=== PATIENT | female | born 1995 | race Caucasian/White ===

== ENCOUNTER 2021-08-16 23:29 | Emergency (ER) | payer BC ==
--- NOTE | 2021-08-17 01:58 | EDM.PDOC ---
ED HPI GENERAL MEDICAL PROBLEM - General Chief Complaint: Chest Pain Stated Complaint: CHEST PAIN Time Seen by Provider: 08/17/21 01:40 Source of Information: Reports: Patient, Old Records, RN History Limitations: Reports: No Limitations - History of Present Illness INITIAL COMMENTS - FREE TEXT/NARRATIVE: 25 yo female presents with at least 24 hrs of mild chest tightness. She thought initially that it was from her milk coming in and the tight sports bra she was wearing. Had recently in [place]. Lives here in [place]. No fever or calf pain. Does have a bit of a cough. No vaccinations for Covid to date. Is worried tonight about her sx's. Has not discussed with her provider. Onset: Gradual Onset Date: 08/15/21 Duration: Day(s): (1), Constant Location: Reports: Chest Quality: Reports: Dull, Pressure Severity: Mild Improves with: Reports: None Worsens with: Reports: Other (deep breathing) Context: Reports: Other (See HPI) Associated Symptoms: Reports: Cough (mild). 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) (none) Chest Pain Score (Numeric/FACES): 6 - Related Data Allergies Allergy/AdvReac Type Severity Reaction Status Date / Time No Known Allergies Allergy Verified 08/17/21 01:14 Home Meds: Home Meds Acetaminophen/HYDROcodone [HYDROcodone-Acetaminophen 5-325 MG *] 1 tab PO ASDIRECTED 08/17/21 [History] Docusate Sodium [Colace] 100 mg PO DAILY 08/17/21 [History] Pantoprazole Sodium [Protonix] 40 mg PO DAILY 08/17/21 [History] Sennosides/Docusate Sodium [Senna-S 8.6-50 mg Tablet] 1 tab PO DAILY 08/17/21 [H istory] nitrofurantoin macrocrystaL [Nitrofurantoin] 100 mg PO BID 08/17/21 [History] Past Medical History - Past Health History Medical/Surgical History: Denies Medical/Surgical History [employer] History: Reports: - Past Surgical History Female Surgical History: Reports: Section Social & Family History - Tobacco Use Tobacco Use Status *Q: Never Tobacco User - Caffeine Use Caffeine Use: Reports: Coffee - Recreational Drug Use Recreational Drug Use: No ED ROS GENERAL - Review of Systems Review Of Systems: See Below Constitutional: Reports: No Symptoms HEENT: Reports: No Symptoms Respiratory: Reports: Cough Cardiovascular: Reports: Chest Pain (mild tightness, worse with deep breathing), Edema (both legs, not new) GI/Abdominal: Reports: No Symptoms : Reports: No Symptoms Musculoskeletal: Reports: No Symptoms Skin: Reports: No Symptoms Neurological: Reports: No Symptoms Psychiatric: Reports: No Symptoms ED EXAM, GENERAL - Physical Exam Exam: See Below Exam Limited By: No Limitations General Appearance: Alert, WD/WN, No Apparent Distress Eye Exam: Bilateral Eye: Normal Inspection Ears: Normal External Exam, Normal Canal, Hearing Grossly Normal Ear Exam: Bilateral Ear: Auricle Normal, Canal Normal Nose: Normal Inspection, No Blood Throat/Mouth: Normal Inspection, Normal Lips, Normal Oropharynx, Normal Voice, No Airway Compromise Head: Atraumatic, Normocephalic Neck: Normal Inspection Respiratory/Chest: No Respiratory Distress, No Accessory Muscle Use, Crackles (R base). No: Rhonchi Cardiovascular: Regular Rate, Rhythm, No Edema GI/Abdominal: Soft, Non-Tender Back Exam: Normal Inspection Extremities: Normal Inspection, Normal Range of Motion, Non-Tender, Pedal Edema (1+ pitting edema bilat. ) Neurological: Alert, Oriented, CN II-XII Intact, Normal Cognition, No Motor/Sensory Deficits Psychiatric: Normal Affect, Normal Mood Skin Exam: Warm, Dry, Intact, Normal Color, No Rash Course - Vital Signs Last Recorded V/S: Last Vital Signs Temp 36.3 C 08/17/21 01:10 Pulse 50 L 08/17/21 01:10 Resp 18 08/17/21 01:10 BP 126/76 08/17/21 01:10 Pulse Ox 98 08/17/21 01:10 - Orders/Labs/Meds Orders: Active Orders 24 hr Category Date Time Status CREATININE W/GFR [CHEM] Stat Lab 08/17/21 01:48 Received Isolation [COMM] Stat Oth 08/17/21 01:53 Ordered Labs: Laboratory Tests 08/17/21 08/17/21 Range/Units 01:45 02:14 D-Dimer, Quantitative 7007.38 H (0.0-500.0) ng/mL Influenza Type A RNA Negative (NEGATIVE) RSV RNA (INAAT) Negative (NEGATIVE) Influenza Type B RNA Negative (NEGATIVE) SARS-CoV-2 RNA (CHRISTOPHER) Negative (NEGATIVE) - Re-Assessments/Exams Free Text/Narrative Re-Assessment/Exam: 08/17/21 03:27 discussed the elevated d-dimer and that it is most likely from her recent surgery. Lives [place] [address] from here and will return if worse. Departure - Departure Time of Disposition: 03:35 Disposition: Home, Self-Care 01 Condition: Good Clinical Impression: Nonspecific chest pain - Discharge Information *PRESCRIPTION DRUG MONITORING PROGRAM REVIEWED*: Not Applicable *COPY OF PRESCRIPTION DRUG MONITORING REPORT IN PATIENT THEE: Not Applicable Instructions: Nonspecific Chest Pain, Adult, [id number] Referrals: PCP,None [Primary Care Provider] - Forms: ED Department Discharge Additional Instructions: Acetaminophen as needed for pain relief. Return for shortness of breath or rapid heart rate. Drink ample fluids so that your urine is light yellow in color. Sepsis Event Note (ED) - Evaluation Sepsis Screening Result: No Definite Risk - Focused Exam Vital Signs: Vital Signs Temp Pulse Resp BP Pulse Ox 08/17/21 01:10 36.3 C 50 L 18 126/76 98 - My Orders Last 24 Hours: My Active Orders 08/17/21 01:48 CREATININE W/GFR [CHEM] Stat 08/17/21 01:53 Isolation [COMM] Stat - Assessment/Plan Last 24 Hours: My Active Orders 08/17/21 01:48 CREATININE W/GFR [CHEM] Stat 08/17/21 01:53 Isolation [COMM] Stat
[2021-08-17 02:50] LABS: CORONAVIRUS COVID-19 NAA NEGATIVE (NEGATIVE)
== END 2021-08-17 03:58 | disposition home or self-care (01) ==
LOC: JP.ED 23:29
DX: R07.89 Other chest pain (principal); Z20.822 Contact with and (suspected) exposure to COVID-19
CPT/HCPCS: 0241U; 36415; 82565; 85379; 99284